=== PATIENT | female | born 1960 | race Caucasian/White ===

== ENCOUNTER 2022-01-14 12:45 | Outpatient (REF) | payer BC, SELFPAY ==
[2022-01-14 14:17] LABS: Vitamin B12 746 pg/mL (200-900)
[2022-01-16 05:07] LABS: Lyme Abs Screen <0.90 index
== END 2022-01-14 12:46 | disposition home or self-care (01) ==
LOC: HO.LAB 12:45
PROVIDERS: Visit Provider Psychiatry & Neurology Neurology
DX: G30.9 Alzheimer's disease, unspecified (principal)
CPT/HCPCS: 36415; 82607; 86617; 86618

== ENCOUNTER → 2023-01-13 11:33 | Outpatient (BNVA) | payer OTHER, SELFPAY | PROVIDERS: PCP Internal Medicine; Visit Provider Psychiatry & Neurology Neurology | DX: F03.90 Unspecified dementia, unspecified severity, without behavioral disturbance, psychotic disturbance, mood disturbance, and anxiety (principal); R06.83 Snoring; G47.10 Hypersomnia, unspecified | CPT/HCPCS: 99202 ==

== ENCOUNTER 2023-01-28 08:16 | Outpatient (REF) | payer OTHER, SELFPAY ==
--- NOTE | 2023-01-28 08:18 | EEG_ITS ---
This is a 16 channel EEG with an EKG lead. The patient is reported awake during the tracing. Background EEG rhythm is low amplitude fast with no obvious asymmetry or paroxysmal tendency. Photic stimulation does not produce any significant abnormality. Hyperventilation is not performed. Cardiac lead does not reveal any significant abnormality. No sharp wave spikes or paroxysmal tendency noted. IMPRESSION: Unremarkable EEG. MD TJ Gregory/EVANS / [id number]
== END 2023-01-28 08:17 | disposition home or self-care (01) ==
LOC: HO.NEURO 08:16
PROVIDERS: PCP Internal Medicine; Visit Provider Psychiatry & Neurology Neurology
DX: R41.0 Disorientation, unspecified (principal)
CPT/HCPCS: 95816

== ENCOUNTER → 2023-02-08 13:52 | Outpatient (REF) | payer OTHER, SELFPAY | LOC: HO.SL 13:52 | PROVIDERS: PCP Internal Medicine; Visit Provider Psychiatry & Neurology Neurology | DX: G47.33 Obstructive sleep apnea (adult) (pediatric) (principal); G47.10 Hypersomnia, unspecified; R06.83 Snoring; R41.0 Disorientation, unspecified | CPT/HCPCS: 95806 ==

== ENCOUNTER 2023-03-17 14:27 | Outpatient (AMB) | payer OTHER, SELFPAY ==
[2023-03-17 14:34] VITALS: BP 140/86; PULSE 80; O2SAT 98; BMI 34.7
--- NOTE | 2023-03-17 14:34 | A.OFFVIS_ITS ---
Intake Vital Signs 03/17/23 14:34 Height 5 ft 1 in Weight 183 lb 8 oz BMI 34.7 BP 140/86 H Blood Pressure Location Rt brachial Position Sitting Pulse 80 Pulse Source Pulse Oximeter Pulse Oximetry (%) 98 Oxygen Delivery Method Room Air Intake Visit Reasons: 2m follow up Alzheimer's dementia - Confirmed Intake Note: Pt presents as a 2m f/u for alzheimers dementia. [employer] Required: No Allergies metformin Allergy (Severe, Verified 03/17/23 14:37) Diarrhea HPI HPI Comments History of Present Illness Details 62 y/o female patient with dementia, hx of stroke presents for follow up of home sleep study. The home sleep study result was significant for moderate degree of sleep apnea. The AHI was 22/hr and oxygen jailene was 82%. CPAP titration study was ordered, but not done yet. EEG result was unremarkable. She was diagnosed with Dementia ? ALzheimers in February of [address] Pelaez. She is on memantine 10 mg BID. Denies side effects. Pt's states she feels her cognitive function a little better than before, but still forgetful. She is independent in all her ADLs. [facility] Medical History Anxiety Carpal tunnel syndrome CKD (chronic kidney disease) Confusion CVA (cerebral vascular accident) Dementia Depression Diabetes Diabetic retinopathy Fatty liver GERD (gastroesophageal reflux disease) HTN (hypertension) Hyperlipidemia Hypersomnia IBS (irritable bowel syndrome) Snoring Surgical History H/O colonoscopy History of carpal tunnel surgery History of laparoscopic appendectomy Hx of cholecystectomy Family History Father Diabetes Myocardial infarct HTN (hypertension) Mother Diabetes HTN (hypertension) Hyperlipidemia Breast CA Maternal Grandmother Cancer Maternal Grandfather Cancer Sister Breast CA Daughter Diabetes Social History (Updated 03/17/23 @ 14:40 by Laurel Hernandez CMA) Alcohol intake: current Alcohol intake frequency: a few times a week Patient Tobacco Use Status: Never used Tobacco Review of Systems Const All systems reviewed & are unremarkable except as noted in HPI and below Neuro Reports confusion Psych Reports confusion Physical Exam Vital Signs: Last Vital Signs Pulse 80 03/17/23 14:34 BP 140/86 H 03/17/23 14:34 Pulse Ox 98 07/06/23 14:34 Oxygen Delivery Method Room Air 03/17/23 14:34 BMI result Body Mass Index 34.7 Const General: cooperative, healthy appearing, comfortable, no acute distress and confusion Nutritional Appearance: average body habitus Orientation/consciousness: confusion Limitations: no limitations Eyes Pupils: Equal, round and reactive pupils present Neuro General: confusion Cranial nerves: Yes Facial sensation intact/muscles of mastication intact, Yes Equal, round and reactive pupils present, Yes Bilaterally intact EOM present, Yes Nystagmus not present, Yes Normal facial strength present, Yes Midline tongue present and Yes Symmetric palate elevation present Cognition (Neuro): abnormal cognition Gait exam (Neuro): Antalgic gait present Motor exam (neuro): 5/5 motor strength present throughout and Normal motor muscle tone present throughout Deep tendon reflexes (DTR's): Right triceps reflex intensity grade: 1+, Left triceps reflex intensity grade: 1+, Rt Biceps (C5, C6): 1+, Left biceps reflex intensity grade: 1+, Right brachioradialis reflex intensity grade: 1+, Left brachioradialis reflex intensity grade: 1+, Right patellar reflex intensity grade: 1+ and Left patellar reflex intensity grade: 1+ Coordination: [id number] test normal Assessment & Plan Assessment & Plan (1) Dementia: Comment: ? early onset Alzheimers Code(s): F03.90 - Unspecified dementia, unspecified severity, without behavioral disturbance, psychotic disturbance, mood disturbance, and anxiety (2) JINNY (obstructive sleep apnea): Comment: Moderate degree of sleep apnea. The AHI was 22/hr and oxygen jailene was 82% Code(s): G47.33 - Obstructive sleep apnea (adult) (pediatric) Plan Discussed regarding sleep apnea and cpap use can improve cognitive function. Advised patient to start APAP [id number] to treat sleep apnea. Continue to take memantine 10mg bid. Avoid driving. Increase physical and cognitive activity. Coding Level of Care Code Est Pt Level 4 (07064) Diagnoses Dementia F03.90 JINNY (obstructive sleep apnea) G47.33
== END 2023-03-17 14:59 | disposition home or self-care (01) ==
LOC: HO.HSMS 14:27
PROVIDERS: PCP Internal Medicine; Visit Provider Nurse Practitioner Family
DX: F03.90 Unspecified dementia, unspecified severity, without behavioral disturbance, psychotic disturbance, mood disturbance, and anxiety (principal); G47.33 Obstructive sleep apnea (adult) (pediatric)
CPT/HCPCS: 99214

== ENCOUNTER → 2023-03-17 14:27 | Outpatient (BNVA) | payer OTHER, SELFPAY | PROVIDERS: PCP Internal Medicine; Visit Provider Nurse Practitioner Family | DX: F03.90 Unspecified dementia, unspecified severity, without behavioral disturbance, psychotic disturbance, mood disturbance, and anxiety (principal); G47.33 Obstructive sleep apnea (adult) (pediatric) | CPT/HCPCS: 99212 ==

== ENCOUNTER 2023-11-22 11:34 | Outpatient (AMB) | payer MEDICARE, MEDICAID, SELFPAY ==
--- NOTE | 2023-11-22 11:41 | MHC.OFFVIS ---
Intake Vital Signs 11/22/23 11:57 Height 5 ft 1 in Weight 162 lb 2 oz BMI 30.6 BP 132/80 Blood Pressure Location Lt brachial Position Sitting Pulse 65 Pulse Source Pulse Oximeter Pulse Oximetry (%) 95 Oxygen Delivery Method Room Air Intake Visit Reasons: 3 mnts f/u - CONF w/address Intake Note: Patient presents for 3 month f/u. Losing up to 5 pounds a week, not much of a appetite and wondering if it is the Dementia. Is Memantine the best medication for her? Allergies metformin Allergy (Severe, Verified 11/22/23 11:50) Diarrhea HPI HPI Comments History of Present Illness Details 63 y/o female patient with dementia, hx of stroke presents for follow up of home sleep study. The home sleep study result was significant for moderate degree of sleep apnea. The AHI was 22/hr and oxygen jailene was 82%. CPAP titration study was ordered, but not done yet. She went for CPAP mask fitting, but she did not like it and declined to use CPAP. EEG result was unremarkable. She sees psychiatrist, and zoloft increased. Pt forgets to take her medication often. Per patient's duaghter, She lost 80 lb over an year. She was diagnosed with Dementia ? ALzheimers in February of [address] Pelaez. She is on memantine 10 mg BID. Denies side effects. Pt's states she feels her cognitive function has not improved. She is independent in all her ADLs. She drives occasionally to her sister's house. [facility] Medical History Anxiety Carpal tunnel syndrome CKD (chronic kidney disease) Confusion CVA (cerebral vascular accident) Dementia Depression Diabetes Diabetic retinopathy Fatty liver GERD (gastroesophageal reflux disease) HTN (hypertension) Hyperlipidemia Hypersomnia IBS (irritable bowel syndrome) Snoring Surgical History History of carpal tunnel surgery H/O colonoscopy Hx of cholecystectomy History of laparoscopic appendectomy Family History Father Diabetes Myocardial infarct HTN (hypertension) Mother Diabetes HTN (hypertension) Hyperlipidemia Breast CA Maternal Grandmother Cancer Maternal Grandfather Cancer Sister Breast CA Daughter Diabetes Social History Alcohol intake: current Alcohol intake frequency: a few times a week Patient Tobacco Use Status: Never used Tobacco Review of Systems Const All systems reviewed & are unremarkable except as noted in HPI and below Neuro Reports confusion Psych Reports confusion Physical Exam Vital Signs: Last Vital Signs Pulse 65 11/22/23 11:57 BP 132/80 11/22/23 11:57 Pulse Ox 95 11/22/23 11:57 Oxygen Delivery Method Room Air 11/22/23 11:57 BMI result Body Mass Index 30.6 Const General: cooperative, healthy appearing, comfortable, no acute distress and confusion Nutritional Appearance: obese Orientation/consciousness: confusion Limitations: no limitations Eyes Pupils: Equal, round and reactive pupils present Neuro General: confusion Cranial nerves: Yes Facial sensation intact/muscles of mastication intact, Yes Equal, round and reactive pupils present, Yes Bilaterally intact EOM present, Yes Nystagmus not present, Yes Normal facial strength present, Yes Midline tongue present and Yes Symmetric palate elevation present Cognition (Neuro): abnormal cognition Gait exam (Neuro): Antalgic gait present Motor exam (neuro): 5/5 motor strength present throughout and Normal motor muscle tone present throughout Deep tendon reflexes (DTR's): Right triceps reflex intensity grade: 1+, Left triceps reflex intensity grade: 1+, Rt Biceps (C5, C6): 1+, Left biceps reflex intensity grade: 1+, Right brachioradialis reflex intensity grade: 1+, Left brachioradialis reflex intensity grade: 1+, Right patellar reflex intensity grade: 1+ and Left patellar reflex intensity grade: 1+ Coordination: [id number] test normal Assessment & Plan Assessment & Plan (1) Dementia: Comment: ? early onset Alzheimers Code(s): F03.90 - Unspecified dementia, unspecified severity, without behavioral disturbance, psychotic disturbance, mood disturbance, and anxiety (2) JINNY (obstructive sleep apnea): Comment: Moderate degree of sleep apnea. The AHI was 22/hr and oxygen jailene was 82% Code(s): G47.33 - Obstructive sleep apnea (adult) (pediatric) Plan Discussed regarding sleep apnea and cpap use can improve cognitive function. Advised patient to start APAP [id number] to treat sleep apnea. Continue to take memantine 10mg bid. Avoid driving. Increase physical and cognitive activity. Coding Level of Care Code Est Pt Level 4 (98832) Diagnoses Dementia F03.90 JINNY (obstructive sleep apnea) G47.33
[2023-11-22 11:57] VITALS: BP 132/80; PULSE 65; O2SAT 95; BMI 30.6
== END 2023-11-22 12:25 | disposition home or self-care (01) ==
LOC: HO.HSMS 11:35
PROVIDERS: PCP Internal Medicine; Visit Provider Nurse Practitioner Family
DX: F03.90 Unspecified dementia, unspecified severity, without behavioral disturbance, psychotic disturbance, mood disturbance, and anxiety (principal); G47.33 Obstructive sleep apnea (adult) (pediatric)
CPT/HCPCS: 99214

== ENCOUNTER → 2023-11-22 11:34 | Outpatient (BNVA) | payer MEDICARE, MEDICAID, SELFPAY | PROVIDERS: PCP Internal Medicine; Visit Provider Nurse Practitioner Family | DX: F03.90 Unspecified dementia, unspecified severity, without behavioral disturbance, psychotic disturbance, mood disturbance, and anxiety (principal); G47.33 Obstructive sleep apnea (adult) (pediatric) | CPT/HCPCS: 99212 ==

== ENCOUNTER 2024-06-19 13:45 | Outpatient (AMB) | payer MEDICARE, MEDICAID, SELFPAY ==
[2024-06-19 13:46] VITALS: BP 116/62; PULSE 84; O2SAT 90; BMI 27.6
--- NOTE | 2024-06-19 13:46 | MHC.OFFVIS ---
Vital Signs 06/19/24 13:46 Height 5 ft 1 in Weight 146 lb BMI 27.6 BP 116/62 Blood Pressure Location Rt brachial Position Sitting Pulse 84 Pulse Source Pulse Oximeter Pulse Oximetry (%) 90 L Oxygen Delivery Method Room Air Intake Visit Reasons: follow up Intake Note: Patient presents for a 7 mon follow up. ( Dementia/ JINNY ) Parking Ramp Attendant Required: No Allergies metformin Allergy (Severe, Verified 06/19/24 13:50) Diarrhea Medication List - Last Reconciled 06/19/24 by Hyun Baig MD amlodipine 5 mg PO DAILY atorvastatin 40 mg PO BEDTIME glyburide 5 mg PO DAILY hydroxyzine HCl 25 mg PO BEDTIME PRN lisinopril 40 mg PO DAILY meclizine 25 mg PO DAILY PRN memantine 10 mg PO BID pantoprazole (Protonix) 20 mg PO DAILY sertraline 100 mg PO DAILY HPI Comments Details: 63 y/o female patient with dementia, hx of stroke presents for follow up of dementia. she is accompanied by her Bridger who helps with her history.she is able to dress, shower, watches TV . she does not cook anymore, cannot drive anymore- stopped by Police as she was confused.she is more confused in the evenings. Her is on dialysis and has BRILLIANDEER LOOPER only during his dialysis. she has daily hallucinations especially in the evenings . sees people in her back yard.she is more anxious and depressed. she has urinary incontinence The home sleep study result was significant for moderate degree of sleep apnea. The AHI was 22/hr and oxygen jailene was 82%. CPAP titration study was ordered, but not done yet. She went for CPAP mask fitting, but she did not like it and declined to use CPAP. EEG result was unremarkable. She sees psychiatrist, and zoloft increased. Pt forgets to take her medication often. She was diagnosed with Dementia ? ALzheimers in February of [address] Pelaez. She is on memantine 10 mg BID. Denies side effects. [facility] Medical History Anxiety CKD (chronic kidney disease) CVA (cerebral vascular accident) Depression IBS (irritable bowel syndrome) HTN (hypertension) Fatty liver GERD (gastroesophageal reflux disease) Carpal tunnel syndrome Hyperlipidemia Diabetic retinopathy Diabetes Dementia Hypersomnia Snoring Confusion Surgical History History of carpal tunnel surgery H/O colonoscopy Hx of cholecystectomy History of laparoscopic appendectomy Family History Father Diabetes Myocardial infarct HTN (hypertension) Mother Diabetes HTN (hypertension) Hyperlipidemia Breast CA Maternal Grandmother Cancer Maternal Grandfather Cancer Sister Breast CA Daughter Diabetes Social History Alcohol intake: current Alcohol intake frequency: a few times a week Patient Tobacco Use Status: Never used Tobacco Review of Systems Neuro Reports confusion Psych Reports confusion Physical Exam Vital Signs: Last Vital Signs Pulse 84 06/19/24 13:46 BP 116/62 06/19/24 13:46 Pulse Ox 90 L 06/19/24 13:46 Oxygen Delivery Method Room Air 06/19/24 13:46 BMI result Body Mass Index 27.6 Const General: cooperative, healthy appearing, comfortable, no acute distress and confusion Nutritional Appearance: obese Orientation/consciousness: confusion Limitations: no limitations Eyes Pupils: Equal, round and reactive pupils present Neuro General: confusion Cranial nerves: Yes Facial sensation intact/muscles of mastication intact, Yes Equal, round and reactive pupils present, Yes Bilaterally intact EOM present, Yes Nystagmus not present, Yes Normal facial strength present, Yes Midline tongue present and Yes Symmetric palate elevation present Cognition (Neuro): abnormal cognition Gait exam (Neuro): Antalgic gait present Motor exam (neuro): 5/5 motor strength present throughout and Normal motor muscle tone present throughout Coordination: [id number] test normal Orientation Where are we (state) (county) (town or city) (hospital) (floor)?: state, hospital/clinic and floor Registration Name of 3 unrelated objects clearly and slowly, then ask patient to repeat all 3 of them. (1st repeat determines score. Make sure they can repeat all three): object 1, object 2 and object 3 Attention & Calculation (CHOOSE ONE) Spell WORLD backwards (DLROW): 1 letter Language Show patient a wristwatch & ask what it is. Repeat for pencil.: watch and pencil Ask the patient to repeat the phrase 'No ifs, ands, or buts' after you.: correct Ask the patient to 'take a piece of paper with their right hand' 'fold paper in half' 'place paper on floor': take paper in right hand, fold paper in half and place paper on floor Print the sentence 'CLOSE YOUR EYES' on a piece. If patient actually closes eyes then score.: followed written direction Give patient a blank piece of paper & ask to write a sentence. Score if it contains a noun & verb.: sentence contains subject and verb Score Score: 15 Assessment & Plan Assessment & Plan (1) Dementia: Comment: ? early onset Alzheimers Code(s): F03.90 - Unspecified dementia, unspecified severity, without behavioral disturbance, psychotic disturbance, mood disturbance, and anxiety Category: Medical Qualifiers: Dementia type: Alzheimer's Alzheimer's disease onset: early onset Dementia severity: severe Dementia behavioral or psychological symptom: with psychotic disturbance Qualified Code(s): G30.0 - Alzheimer's disease with early onset; F02.C2 - Dementia in other diseases classified elsewhere, severe, with psychotic disturbance Plan Patient needs additional services as her spouse who is her advertising solicitor is on Dialysis 3 times a week. He gets support only during his dialysis but needs more hours for daily activities like grocery shopping, cleaning, meal prep, hygiene etc. 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
== END 2024-06-19 14:31 | disposition home or self-care (01) ==
PROVIDERS: PCP Internal Medicine; Visit Provider Psychiatry & Neurology Neurology
DX: G30.0 Alzheimer's disease with early onset (principal); F02.C2 Dementia in other diseases classified elsewhere, severe, with psychotic disturbance
CPT/HCPCS: 99214; G2211

== ENCOUNTER → 2024-06-19 13:45 | Outpatient (BNVA) | payer MEDICARE, MEDICAID, SELFPAY | PROVIDERS: PCP Internal Medicine; Visit Provider Psychiatry & Neurology Neurology | DX: G30.0 Alzheimer's disease with early onset (principal); F02.C2 Dementia in other diseases classified elsewhere, severe, with psychotic disturbance | CPT/HCPCS: 99212 ==

== ENCOUNTER 2025-01-17 13:57 | Outpatient (AMB) | payer MEDICARE, MEDICAID, SELFPAY ==
--- NOTE | 2025-01-17 14:23 | A.OFFVIS_ITS ---
Vital Signs 01/17/25 14:24 Height 5 ft 1 in Weight 157 lb BMI 29.7 BP 110/66 Blood Pressure Location Rt brachial Intake Visit Reasons: follow up-LVM Intake Note: Patient presents for follow up alzheimer's Allergies metformin Allergy (Severe, Verified 01/17/25 14:25) Diarrhea HPI Comments Details: 64 y/o female patient with dementia, hx of stroke presents for follow up of dementia. she is more confused .she is being investigated for kidney and thyroid malignancy. 2 weeks ago she went to the hospital - for hypoglycemia - 28 and she had a seizure. Her insulin dose was decreased . she has a FIELD SERVICES ANALYST 4 hrs a day for 4 days a week. she is accompanied by her daughter who helps with her history.she needs supervision to dress, shower, watches TV . she does not cook anymore, cannot drive anymore- stopped by Police as she was confused.she is more confused in the evenings. she has daily hallucinations especially in the evenings . sees people in her back yard.she is more anxious and depressed. she has urinary incontinence The home sleep study result was significant for moderate degree of sleep apnea. The AHI was 22/hr and oxygen jailene was 82%. She went for CPAP mask fitting, but she did not like it and declined to use CPAP. EEG result was unremarkable. She sees psychiatrist, and zoloft increased. Pt forgets to take her medication often. She was diagnosed with Dementia ? ALzheimers in February of [address] Pelaez. She is on memantine 10 mg BID. Denies side effects. [facility] Medical History Anxiety CKD (chronic kidney disease) CVA (cerebral vascular accident) Depression IBS (irritable bowel syndrome) HTN (hypertension) Fatty liver GERD (gastroesophageal reflux disease) Carpal tunnel syndrome Hyperlipidemia Diabetic retinopathy Diabetes Dementia Hypersomnia Snoring Confusion Surgical History History of carpal tunnel surgery H/O colonoscopy Hx of cholecystectomy History of laparoscopic appendectomy Family History Father Diabetes Myocardial infarct HTN (hypertension) Mother Diabetes HTN (hypertension) Hyperlipidemia Breast CA Maternal Grandmother Cancer Maternal Grandfather Cancer Sister Breast CA Daughter Diabetes Social History Alcohol intake: current Alcohol intake frequency: a few times a week Patient Tobacco Use Status: Never used Tobacco Review of Systems Neuro Reports confusion Psych Reports confusion Physical Exam Vital Signs: Last Vital Signs BP 110/66 01/17/25 14:24 BMI result Body Mass Index 29.7 Const General: cooperative, healthy appearing, comfortable, no acute distress and confusion Nutritional Appearance: obese Orientation/consciousness: confusion Limitations: no limitations Eyes Pupils: Equal, round and reactive pupils present Neuro General: confusion Cranial nerves: Yes Facial sensation intact/muscles of mastication intact, Yes Equal, round and reactive pupils present, Yes Bilaterally intact EOM present, Yes Nystagmus not present, Yes Normal facial strength present, Yes Midline tongue present and Yes Symmetric palate elevation present Cognition (Neuro): abnormal cognition Gait exam (Neuro): Antalgic gait present Motor exam (neuro): 5/5 motor strength present throughout and Normal motor mus alana tone present throughout Coordination: [id number] test normal Assessment & Plan Assessment & Plan (1) Dementia: Comment: ? early onset Alzheimers ? mixed dementia Code(s): F03.90 - Unspecified dementia, unspecified severity, without behavioral disturbance, psychotic disturbance, mood disturbance, and anxiety Category: Medical Qualifiers: Dementia type: Alzheimer's Alzheimer's disease onset: early onset Dementia severity: severe Dementia behavioral or psychological symptom: with psychotic disturbance Qualified Code(s): G30.0 - Alzheimer's disease with early onset; F02.C2 - Dementia in other diseases classified elsewhere, severe, with psychotic disturbance Plan Supportive care F/u with PCP Continue memantine 10mg bid Discussed about [facility] care services Coding Level of Care Code Est Pt Level 4 (06396) Diagnoses 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
[2025-01-17 14:24] VITALS: BP 110/66; BMI 29.7
--- OUTSIDE RECORDS SUMMARY | 2025-01-17 14:54 | XMS_ITS | Clinical Summary ---
Author Organization [facility] Address [address] [place] [address] Phone Care Team Providers Care Piped Buttonhole Machine Operator Name Role Phone Audrey Posey MD Primary Care Pr ovider Allergies No known active allergies Medications megestrol (MEGACE) 20 MG tablet Take 20 mg by mouth 1 (one) time each day Active atorvastatin (LIPITOR) 40 MG tablet Take 40 mg by mouth 1 (one) time each day Active amLODIPine (NORVASC) 5 MG tablet Take 5 mg by mouth 1 (one) time each day Active pantoprazole (PROTONIX) 20 MG EC tablet Take 20 mg by mouth 1 (one) time each day before breakfast Do not crush, chew, or split. Active memantine (NAMENDA) 10 MG tablet Take 10 mg by mouth in the morning and 10 mg in the evening. Active glucose blood test strip 1 each by Other route if needed Use as instructed Active insulin glargine (LANTUS) 100 UNIT/ML injection Inject under the skin every night Active sertraline (ZOLOFT) 100 MG tablet Take 100 mg by mouth 1 (one) time each day Active gabapentin (NEURONTIN) 400 MG capsule Take 400 mg by mouth 1 (one) time each day Active hydrOXYzine (ATARAX) 25 MG tablet Take 25 mg by mouth every 6 (six) hours if needed for itching Active Brexpiprazole (Rexulti) 2 MG tablet Take by mouth 1 (one) time each day pm Active ciprofloxacin (Cipro) 250 MG tablet Take 1 tablet (250 mg total) by mouth in the morning and 1 tablet (250 mg total) in the evening. Do all this for 5 days. 10 tablet 5 12/26/19 25 Active Problems Problem Noted Date Diagnosed Date Stage 3a chronic kidney disease 10/09/2024 Benign hypertension with chronic kidney disease 10/09/2024 Type 2 diabetes mellitus wit h diabetic chronic kidney disease 10/09/2024 Hyperlipidemia Encounters Date Type Department Care Team Description 12/31/2024 Office Communication [facility] [address] [address] Cole Schwartz MD 12/20/2024 Refill [facility] [address] [address] Cole Schwartz MD Renal mass (Primary Dx) 12/19/2024 Office Communication [facility] [address] [address] Joyce Venegas 12/14/2024 Orders Only [facility] [address] [address] Cole Schwartz MD 12/14/2024 Telephone [facility] [address] [address] 12/11/2024 Orders Only [facility] [address] [address] Cole Schwartz MD Stage 3a chronic kidney disease (HCC); Benign hypertension with chronic kidney disease; Type 2 diabetes mellitus with diabetic chronic kidney disease (HCC) 11/27/2024 Office Communication [facility] [address] [address] Johan Winters 11/27/2024 Orders Only [facility] [address] [phone] Cole Schwartz MD Renal mass 11/26/2024 Orders Only [facility] [address] [address] Cole Schwartz MD Renal mass (Primary Dx) from Last 3 Months Family History Medical History Relation Comments Diabetes Father Heart attack Father Hypertension Father Uterine cancer Maternal Grandmother Breast cancer Mother Diabetes Mother Hyperlipidemia Mother Hypertension Mother Breast cancer Sister Relation Status Comments Father Maternal Grandmother Mother Sister Social History Tobacco Use Types Packs/Day Years Used Date Smoking Tobacco: Never Smokeless Tobacco: Never Tobacco Cessation:Counseling Given: Not Answered Alcohol Use Standard Drinks/Week Comments Yes 0 (1 standard drink = 0.6 oz pur e alcohol) occasional Comments Unknown Sex and Gender Information Value Date Recorded Sex Assigned at Not on file Legal Sex Female 9:54 AM EDT Gender Identity Not on file Sexual Orientation Not on file Last Filed Vital Signs Vital Sign Reading Time Taken Comments Blood Pressure 114/76 10/09/2024 10:17 AM EST Pulse 80 10/09/2024 10:17 AM EST Temperature - - Respiratory Rate - - Oxygen Saturation - - Inhaled Oxygen Concentration - - Weight 68.2 kg (150 lb 6.4 oz) 10/09/2024 10:17 AM EST Height - - Body Mass Index - - Plan of Treatment Upcoming Encounters Date Type Department Care Team (Late st Contact Info) Description 01/31/2025 3:00 PM EDT Office Visit [facility] [address] [place] [phone] Cole Schwartz MD [address] [phone] Health Maintenance Due Date Last Done Comments Breast Cancer Screening 1960 Colorectal Cancer Screening: Annual FOBT 2007 Colorectal Cancer Screening: Colonoscopy 2007 Colorectal Cancer Screening: Sigmoidoscopy 2007 Pneumococcal Vaccine: 50+ Ye ars (2 of 2 - PCV) 11/16/2014 11/16/2013 Hepatitis B Vaccine (1 of 3 - Risk 3-dose series) 2018 Diabetes: Ophthalmology Exam 07/13/2024 Diabetes: Pedal Pulse Checked 07/13/2024 Diabetes: Sensory Foot Exam 07/13/2024 Diabetes: Visual Foot Exam 07/13/2024 Diabetes: Hemoglobin A1C 09/19/2024 06/19/2024 Influenza Vaccine (Season Ended) 2025 05/25/2022, 11/13/2021, 08/30/2012, Additional history exists Pneumococcal Vaccine: Peds ( 0 to 5 Years) and At-Risk Patients (6 to 49 Years) Discontinued 11/16/2013 Procedures Procedure Name Priority Date/Time Associated Diagnosis Comments PROTEIN / CREATININE RATIO, URINE Routine 12/14/2024 6:00 AM EDT URINALYSIS WITH MICROSCOPIC Routine 12/14/2024 6:00 AM EDT MICROSCOPIC EXAMINATION - DO NOT USE Routine 12/14/2024 6:00 AM EDT PTH, INTACT Routine 12/11/2024 2:34 PM EDT Stage 3a chronic kidney disease (HCC) 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) RENAL FUNCTION PANEL Routine 12/11/2024 2:34 PM EDT Stage 3a chronic kidney disease (HCC) 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) VITAMIN D 25 HYDROXY Routine 12/11/2024 2:34 PM EDT Stage 3a chronic kidney disease (HCC) 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) PROTEIN ELECTROPHORESIS, SERUM Routine 12/11/2024 2:34 PM EDT Stage 3a chronic kidney disease (HCC) 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) from Last 3 Months Results * (ABNORMAL) Microscopic Examination (12/14/2024 6:00 AM EDT) WBC, Urine >30(A) 0 - 5 /hpf [facility] RBC, Urine None seen 0 - 2 /hpf [facility] Squamous Epithelial, Urine None seen 0 - 10 /hpf [facility] Casts None seen None seen /lpf [facility] Bacteria, Urine Many(A) None seen/Few [facility] 12/14/2024 6:00 AM EDT 12/14/2024 Cole Schwartz MD LAB MICROBIOLOGY - [facility] Final Result Performing Organization Address City/[facility]/ZIP Co de Phone Number [facility] [address] [place] [address] * (ABNORMAL) Protein, Total, Random Urine w/Creatinine (Protein/Creat Ratio) (12/14/2024 6:00 AM EDT) Creatinine, Ur 91.3 Not Estab. mg/dL [facility] Protein, Ur 39.2 Not Estab. mg/dL [facility] Urine Protein/Creati nine Ratio 429(H) 0 - 200 mg/g creat [facility] 12/14/2024 6:00 AM EDT 12/14/2024 us Cole Schwartz MD LAB URINE ORDERABLES Final Resu lt [facility] [address] [place] [address] * (ABNORMAL) Urinalysis with microscopic (12/14/2024 6:00 AM EDT) Specific [place], Urine 1.014 1.005 - 1.030 [facility] [phone] pH Urine 5.5 5.0 - 7.5 [facility] [phone] Color, Urine Yellow Yellow [facility] Appearance Urine Cloudy(A) Clear [facility] WBC Esterase Urine 2+(A) Negative [facility] Protein, Ur 1+(A) Negative/Tra ce [facility] Glucose, Ur Negative Negative [facility] Ketones, Urine Negative Negative [facility] [phone] Blood Urine Negative Negative [facility] Bilirubin Urine Negative Negative [facility] Urobilinogen Urine 0.2 0.2 - 1.0 mg/dL [facility] Nitrite, Urine Negative Negative [facility] Microscopic Examination See below: [facility] Comment:Microscopic was breonna cated and was performed. 12/14/2024 6:00 AM EDT 12/14/2024 us Cole Schwartz MD LAB URINE ORDERABLES Final Resu lt [facility]CO [facility] [address] [place] [address] * Vitamin D 25 hydroxy (12/11/2024 2:34 PM EDT) Vitamin D, 25-OH, Total 45.0 30.0 - 100.0 ng/mL [facility] Comment: Vitamin D deficiency has been defined by the [place] of [employer] and an Endocrine Society practice guideline as a level of serum 25-OH vitamin D less than 20 ng/mL (1,2). The Endocrine Society went on to further define vitamin D insufficiency as a level between 21 and 29 ng/mL (2). 1. IOM ([place] of Medicine). 2010. Dietary reference ?? intakes for calcium and D. [place]: The ?? National Academies Press. 2. Lidia LIVINGSTON, Jose Angel CAMPO, Shabana CAREY, et al. ?? Evaluation, treatment, and prevention of vitamin D ?? deficiency: an Endocrine Society clinical practice ?? guideline. JCEM. 2010; 96(7):1911-30. Blood (Blood, Venous) 12/11/2024 2:34 PM EDT 12/11/2024 us Cole Schwartz MD LAB BLOOD ORDERABLES Final Resu lt [facility] [address] [place] [address] * (ABNORMAL) Protein electrophoresis, serum (12/11/2024 2:34 PM EDT) Total Protein 7.3 6.0 - 8.5 g/dL [facility] Albumin 3.3 2.9 - 4.4 g/dL [facility] Hfmcc-2-Nfwuhbka 0.3 0.0 - 0.4 g/dL [facility] Padtb-2-Wcdqfwud 1.0 0.4 - 1.0 g/dL [facility] Beta Globulin 1.1 0.7 - 1.3 g/dL [facility] Gamma Globulin in Serum 1.7 0.4 - 1.8 g/dL [facility] M-Laci Serum Comment Not Observed g/dL [facility] Comment: Faint band in gamma region suspicious for monoclonal immunoglobulin. This band may represent a benign spike as seen in older people or could be a paraprotein as seen in Multiple Myeloma, Waldenstrom's Macroglobulinemia or Lymphoma. Depending on clinical circumstances, further diagnostic studies may include serum immunofixation or serum free light chain quantitation. Globulin, Total 4.0(H) 2.2 - 3.9 g/dL [facility] A/G Ratio 0.8 0.7 - 1.7 [facility] [phone] Please note Comment [facility] [phone] Comment: Protein electrophoresis scan will follow via computer, mail, or real estate administrator delivery. PDF . [facility] [phone] Blood (Blood, Venous) 12/11/2024 2:34 PM EDT 12/11/2024 us Cole Schwartz MD LAB BLOOD ORDERABLES Final Resu lt Performing Organization Address City/[facility]/ZIP Co de Phone Number [facility] [address] [place] [address] * (ABNORMAL) PTH, intact (12/11/2024 2:34 PM EDT) PTH 146(H) 15 - 65 pg/mL [facility] Blood (Blood, Venous) 12/11/2024 2:34 PM EDT 12/11/2024 us Cole Schwartz MD LAB BLOOD ORDERABLES Final Resu lt Performing Organization Address City/[facility]/ZIP Co de Phone Number [facility] [address] [place] [address] * (ABNORMAL) Renal function panel (12/11/2024 2:34 PM EDT) Glucose 252(H) 70 - 99 mg/dL [facility] BUN 22 8 - 27 mg/dL [facility] Creatinine 1.23(H) 0.57 - 1.00 mg/dL [facility] eGFR CKD-EPI CR 2020 48(L) >59 mL/min/1.7 3 [facility] BUN/Creatinine Ratio 18 12 - 28 [facility] Sodium 141 134 - 144 mmol/L [facility] Potassium 3.7 3.5 - 5.2 mmol/L [facility] Chloride 104 96 - 106 mmol/L [facility] Bicarbonate (CO2) 20 20 - 29 mmol/L [facility] Calcium 9.0 8.7 - 10.3 mg/dL [facility] Albumin 4.0 3.9 - 4.9 g/dL [facility] Phosphorus 3.6 3.0 - 4.3 mg/dL [facility] Blood (Blood, Venous) 12/11/2024 2:34 PM EDT 12/11/2024 Cole Schwartz MD LAB BLOOD ORDERABLES Final Resu lt [facility] [address] [place] [address] from Last 3 Months Insurance Medicare Medicare Medicaid [place] Care Teams Piped Buttonhole Machine Operator Relationship Specialty Start Date End Date Audrey Posey MD [address] [place] [address] PCP - General Internal Medicine 12/15/23
--- OUTSIDE RECORDS SUMMARY | 2025-01-17 14:54 | XMS_ITS | Encounter Summary ---
Author Organization [facility] Address [address] [place] [address] Care Team Providers Care Food Scientist Name Role Phone Audrey Posey MD Primary Care Prov ider Reason for Visit * Reason Onset Date Comments Faxed Order 01/16/2025 Encounter Details Date Type Department Care Team ([facility] Contact Info) Description 01/16/2025 Telephone Adult Medicine - [place] [address] [place] [phone] Audrey Posey MD [address], [place] [phone] Faxed Order Social History Tobacco Use Types Packs/Day Years Used Date Smoking Tobacco: Never Smokeless Tobacco: Never Alcohol Use Standard Drinks/Week Comments Yes 0 (1 standard drink = 0.6 oz pur e alcohol) Comments No Sex and Gender Information Value Date Recorded Sex Assigned at Female 01/15/2025 11:01 AM EDT Legal Sex Female 4:06 PM EST Gender Identity Female 01/15/2025 11:01 AM EDT Sexual Orientation Straight 01/15/2025 11 :01 AM EDT documented as of this encounter Progress Notes * Antonina Gastelum - 01/16/2025 12:06 PM EDT PLEASE CLOSE MESSAGE WHEN ORDER HAS BEEN FAXED Faxed order [id number] received from [facility], requesting signature from provider. Please sign and fax back to [phone]. Order in orange folder documented in this encounter Plan of Treatment Upcoming Encounters Date Type Department Care Team (Late st Contact Info) Description 01/22/2025 8:00 AM EDT Appointment [facility] Interventional Radiology [address] [place] [phone] 01/23/2025 2:00 PM EDT Office Visit [facility] Hematology Oncology [address] [place] [phone] Charis Anderson MD [address] [place] [address] 02/12/2025 1:00 PM EDT Office Visit Urogynecology - [address] [phone] Hailey John MD [address] [place] [address] [address] [place] [address] 02/26/2025 11:00 AM EDT Office Visit Adult Medicine - [place] [address] [place] [phone] Audrey Posey MD [address], [place] 05/02/2025 1:50 PM EDT Appointment Radiology Department - [address] [phone] documented as of this encounter Goals Goal Patient Goal Type Associated Problems Recent Progress Patient-Stated? Author Keep patient safe at home Chelsea Evangelista, RN Note: [facility] Program referral Educate family as needed Assist family to find additional care resources documented as of this encounter Visit Diagnoses Not on filedocumented in this encounter Care Teams Food Scientist Relationship Specialty Start Date End Date Audrey Posey MD [address], [place] PCP - General Internal Medicine 10/31/15 documented as of this encounter
--- OUTSIDE RECORDS SUMMARY | 2025-01-17 14:54 | XMS_ITS | Continuity of Care Document ---
Author Organization [facility] [address] [facility] [address] [place] [address] Phone [phone] Care Team Providers Care Director Prison Name Role Phone Audrey Dailey MD Care Team Informa tion Checkroom Chief [phone] Audrey Nettles M.D Care Team Informa tion Checkroom Chief [phone] Problems Active Problems Provider Date Type 2 diabetes mellitus Sreekanth Interiano M.D. Onset: 12/25/2024 Dementia Sreekanth Interiano M.D. Onset: 0 12/25/2024 Social History Type Date Description Comments Sex Unknown Medications Active Medications SIG Qnty Indications Order ing Provider Date Vitamin D (Ergocalciferol)1.25 mg (62724 Ut) Capsules Take 1 Capsule By Mouth Once A Week Unknown Memantine OFA68pd Tablets Take 1 Tablet By Mouth Twice Daily Chris Almanzar PA Purlgeq2od Tablets Take 1 Tablet By Kathia Once Daily AT Bedtime Unknown Novolog Fiazppt278Jsci/ML Solution Pen-Inject Inject 10 Units Subcutaneously Subcutaneously Three Times Daily With Meals Unknown 0 Tsinotwrn41lf Tablets ER 24HR Take 1 Tablet By Mouth Once Daily Unknown Megestrol Esipoeo99pb Tablets Take 1 Tablet By Mouth Once Daily Audrey Nettles M.D Lantus Sbldqzjj859Icfw/ML Solution Pen-Inject Inject 65 Units Subcutaneously AT Bedtime Unknown BD Pen Needle/Short/Ultra-F ine/31G X 8mm31G X 8 mm Misc Use 1 Pen Subcutaneously 4 Times Daily.Use To Inject Insulin. Unknown Insulin Lispro (1 Unit Dial)100Unit/ML Solution Pen-Inject Inject 10 Units Subcutaneously Three Times Daily Before Meal(S) Unknown Sertraline FMI662cb Tablets Take 2 Tablets By Mouth AT Bedtime Unknown Atorvastatin Gqfatlz84cu Tablets Take 1 Tablet By Mouth Once Daily Unknown Pantoprazole Bhdrkh89mw Tablets DR Take 1 Tablet By Mouth Once Daily Chris Almanzar PA Pnxfmtwpau376cg Capsules Take 1 Capsule By Mouth AT Bedtime Unknown Vital Signs Date Vital Result Comment 12/25/2024 1:52pm BP Systolic 120 mmHg BP Diastolic 82 mmHg Heart Rate 72 /min Height 61 inches 5'1 Weight 161.25 lb BMI (Body Mass Index) 30.5 kg/m2 Results Test Acquired Date Facility Test Result H/L Range N ote Vitamin B12 12/25/2024 [facility] Vitamin B12 <pending> Glucose Fingerstick 12/25/2024 Inhouse Glucose Fingerstick 172 Hemoglobin A1c 12/25/2024 Inhouse Hemoglobin A1c 7.0% Procedures Date Code Description Status 12/25/2024 59160 Glucose Monitoring Interpeta tion And Report Completed Medical Devices Description No Information Available Encounters Type Date Location Provider Dx Diagnosis Office Visit 12/25/2024 1:45p Main Office Sreekanth Interiano M.D. E11.9 Type 2 diabetes mellitus without complications Assessments Date Code Description Provider 12/25/2024 E11.9 Type 2 diabetes mellitus without complications Sreekanth Interiano M.D. Plan of Treatment Future Appointment(s):* 04/30/2025 1:45 pm - Sreekanth Interiano M.D. at Main Office 12/25/2024 - Sreekanth Interiano M.D.* E11.9 Type 2 diabetes mellitus without complications* New Labs:* Vitamin B12, Ordered: 12/25/24 * Comp. Metabolic Panel (14), Ordered: 12/25/24 * Lipid Panel, Ordered: 12/25/24 * Urinalysis, Complete, Ordered: 12/25/24 * CBC With Differential/Platelet, Ordered: 12/25/24 * Thyroid Stimulating Hormone (TSH), Ordered: 12/25/24 * Thyroxine (T4) Free Direct, Ordered: 12/25/24 * Albumin/Creatinine Ratio, Random Urine, Ordered: 12/25/24 * Thyroid Peroxidase (Tpo) AB, Ordered: 12/25/24 Functional Status Description No Information Available Mental Status Description No Information Available Referrals Description No Information Available
--- OUTSIDE RECORDS SUMMARY | 2025-01-17 14:54 | XMS_ITS ---
Author Organization [facility] Address [address] [place] [address] Care Team Providers Care Grocery Supervisor Name Role Phone Audrey Posey MD Primary Care Prov ider High Risk Care Management Status:Ongoing (Active) Start date:12/31/2024 Enrollment date:12/31/2024 Enrollment reason:Identified as high-risk Case Team Name Relationship Phone Chelsea Snell aligner(Responsible S taff) Continued Care and Services Coordination
--- OUTSIDE RECORDS SUMMARY | 2025-01-17 14:54 | XMS_ITS | Encounter Summary ---
Author Organization [facility] Address [address] [place] [address] Care Team Providers Care Steam Tank Operator Name Role Phone Audrey Posey MD Primary Care Prov ider Reason for Visit * Reason Onset Date Comments Faxed Order [id number] 01/17/2025 Encounter Details Date Type Department Care Team ([facility] st Contact Info) Description 01/17/2025 Telephone Adult Medicine - [place] [address] [place] [phone] Audrey Posey MD [address] [place], [place] [phone] Faxed Order [id number] Social History Tobacco Use Types Packs/Day Years [...] encounter Progress Notes * Antonina Gastelum - 01/17/2025 9:42 AM EDT PLEASE CLOSE MESSAGE WHEN ORDER HAS BEEN FAXED Faxed order [id number] received from [facility], requesting signature from provider. Please sign and fax back to [phone]. Order in orange folder documented in this encounter Plan of Treatment Upcoming Encounters Date Type Department Care Team (Late st Contact Info) Description 01/22/2025 8:00 AM EDT Appointment [facility] Interventional Radiology [address] [place] [phone] 01/23/2025 2:00 PM EDT Office Visit [facility] Hematology Oncology [address] [place] [phone] Charis Anderson MD [address] [place] [address] 02/12/2025 1:00 PM EDT Office Visit Urogynecology - [address] [phone] Hailey John MD [address] [place] [address] [address] [place] [address] 02/26/2025 11:00 AM EDT Office Visit Adult Medicine - [place] [address] [place] [address] Audrey Posey MD [address] [place], [place] 05/02/2025 1:50 PM EDT Appointment Radiology Department - [address] [phone] documented as of this encounter Goals Goal Patient Goal Type Associated Problems Recent Progress Patient-Stated? Author Keep patient safe at home Chelsea Evangelista, RN Note: Pace Program referral Educate family as needed Assist family to find additional care resources documented as of this encounter Visit Diagnoses Not on filedocumented in this encounter Care Teams Steam Tank Operator Relationship Specialty Start Date End Date Audrey Posey MD [address] [place], [place] PCP - General Internal Medicine 10/31/15 documented as of this encounter
--- OUTSIDE RECORDS SUMMARY | 2025-01-17 14:54 | XMS_ITS | Encounter Summary ---
Author Organization [facility] Address [address] [place] [address] Care Team Providers Care Career Development Coordinator Name Role Phone Audrey Posey MD Primary Care Prov ider Encounter Details Date Type Department Care Team (Latest Contact Info) Description 01/17/2025 Billing Patient Not Present Adult Medicine - [place] [address] [place] [phone] Audrey Posye MD [address] [place] [address] Type 2 diabetes mellitus with hypoglycemia without coma, unspecified whether jail insulin use (CMS/HCC V24, CMS/HCC V28) (Primary Dx); Convulsions, unspecified convulsion type (CMS/HCC V24, CMS/HCC V28); Dementia without behavioral disturbance, psychotic disturbance, mood disturbance, or anxiety, unspecified dementia severity, unspecified dementia type (CMS/HCC V24, CMS/HCC V28); Hypokalemia; Essential (primary) hypertension; Altered mental status, unspecified altered mental status type Social History Tobacco Use Types Packs/Day Years [...] as of this encounter Progress Notes * Alfie Berumen MA - 01/17/2025 9:39 AM EDT Start of Care Date: 01/03/25 Date of certification period: 01/03/25- Date of service = signature date 01/17/25 Hospice patient: no Home Care Agency: [facility] Recertification Code [id number] Initial Code G0180 documented in this encounter Plan of Treatment Upcoming Encounters Date Type Department Care Team (Late st Contact Info) Description 01/22/2025 8:00 AM EDT Appointment [facility] Interventional Radiology [address] [place] [phone] 01/23/2025 2:00 PM EDT Office Visit [facility] Hematology Oncology [address] [place] [phone] Charis Anderson MD [address] [place] [address] 02/12/2025 1:00 PM EDT Office Visit Urogynecology - [address] [phone] Hailey John MD [address] [place] [address] [address] [place] [address] 02/26/2025 11:00 AM EDT Office Visit Adult Medicine - [address] [phone] Audrey Posey MD [address] [place] [address] 05/02/2025 1:50 PM EDT Appointment Radiology Department - [address] [phone] documented as of this encounter Goals Goal Patient Goal Type Associated Problems Recent Progress Patient-Stated? Author Keep patient safe at home Chelsea Evangelista, RN Note: Pace Program referral Educate family as needed Assist family to find additional care resources documented as of this encounter Visit Diagnoses Diagnosis Type 2 diabetes mellitus with hypoglycemia without coma, unspecified whether jail insulin use ([facility] V24, [facility] V28)- Primary Convulsions, unspecified convulsion type ([facility] V24, [facility] V28) Dementia without behavioral disturbance, psychotic disturbance, mood disturbance, or anxiety, unspecified dementia severity, unspecified dementia type (CMS/[facility] V24, [facility] V28) Hypokalemia Hypopotassemia Essential (primary) hypertension Unspecified essential hypertension Altered mental status, unspecified altered mental status type Encounter for screening mammogram for breast cancer documented in this encounter Care Teams Career Development Coordinator Relationship Specialty Start Date End Date Audrey Posey MD [address] [place] [address] PCP - General Internal Medicine 10/31/15 documented as of this encounter
--- OUTSIDE RECORDS SUMMARY | 2025-01-17 14:54 | XMS_ITS | Encounter Summary ---
Author Organization [facility] Address [address] [place] [address] Care Team Providers Care High Lift Driver Name Role Phone Audrey Posey MD Primary Care Prov ider Reason for Visit * Reason Onset Date Comments Forms/questionnaires 01/14/2025 [facility] 01/04/20-03/03/2025 Encounter Details Date Type Department Care Team ([facility] Contact Info) Description 01/14/2025 Telephone Adult Medicine - [place] [address] [place] [address] Audrey Posey MD [address] [place] [address] Forms/questionnaires ([facility] 01/03/2025-03/03/2025) Social History Tobacco Use Types Packs/Day Years [...] of this encounter Progress Notes * Alfie Bermuen MA - 01/17/2025 9:38 AM EDT Order encounter created. * Alfie Berumen MA - 01/16/2025 4:33 PM EDT Placed in pcp's in basket. * Antonina Gastelum - 01/14/2025 10:58 AM EDT HOME HEALTH CERTIFICATION AND PLAN OF CARE DATE RECEIVED:01/13/2025 AGENCY:[facility] CERT DATES:01/03/2025-03/03/2025 FAX NUMBER:[phone] LOCATION OF HHC:lead front desk agent forms bin documented in this encounter Plan of Treatment Upcoming Encounters Date Type Department Care Team (Late st Contact Info) Description 01/22/2025 8:00 AM EDT Appointment [facility] Interventional Radiology [address] [place] [address] 01/23/2025 2:00 PM EDT Office Visit [facility] Hematology Oncology [address] [place] [address] Charis Anderson MD [address] [place] [address] 02/12/2025 1:00 PM EDT Office Visit Urogynecology [address] [phone] Hailey John MD [address] [facility] [address] [place] [address] 02/26/2025 11:00 AM EDT Office Visit Adult Medicine - [place] [address] [place] [address] Audrey Posey MD [address] [place] [address] 05/02/2025 1:50 PM EDT Appointment Radiology Department [address] [phone] documented as of this encounter Goals Goal Patient Goal Type Associated Problems Recent Progress Patient-Stated? Author Keep patient safe at home Chelsea Evangelista, RN Note: Pace Program referral Educate family as needed Assist family to find additional care resources documented as of this encounter Visit Diagnoses Not on filedocumented in this encounter Care Teams High Lift Driver Relationship Specialty Start Date End Date Audrey Posey MD [address] [place] [address] PCP - General Internal Medicine 10/31/15 documented as of this encounter
--- OUTSIDE RECORDS SUMMARY | 2025-01-17 14:54 | XMS_ITS | Encounter Summary ---
Author Organization [facility] Address [address] [place] [address] Phone Care Team Providers Care Coining Press Operator Name Role Phone Audrey Posey MD Primary Care Pr ovider Reason for Visit * Reason Onset Date Comments REQUEST CT 12/14/2024 Encounter Details Date Type Department Care Team (Late st Contact Info) Description 12/14/2024 Telephone [facility]. [address] [place] [address] Joyce Venegas [address] [place] [address] Social History Tobacco Use Types Packs/Day Years Used Date Smoking Tobacco: Never Smokeless Tobacco: Never Alcohol Use Standard Drinks/Week Comments Yes 0 (1 standard drink = 0.6 oz pur e alcohol) occasional Comments Unknown Sex and Gender Information Value Date Recorded Sex Assigned at Not on file Legal Sex Female 9:54 AM EDT Gender Identity Not on file Sexual Orientation Not on file documented as of this encounter Miscellaneous Notes * Telephone Encounter - Joyce Venegas - 12/14/2024 11:18 AM EDT Patient daughter Linda calls today requesting if it's possible for you to switch her MRI of the abdomen to a CT due to 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 Daughter#[phone] Please advise, Thank you documented in this encounter Plan of Treatment Upcoming Encounters Date Type Department Care Team ([facility] st Contact Info) Description 01/31/2025 3:00 PM EDT Office Visit [facility] [address] [place] [phone] Cole Schwartz MD [address] [phone] documented as of this encounter Visit Diagnoses Not on filedocumented in this encounter Care Teams Coining Press Operator Relationship Specialty Start Date End Date Audrey Posey MD [address] [place] [address] PCP - General Internal Medicine 12/15/23 documented as of this encounter
--- OUTSIDE RECORDS SUMMARY | 2025-01-17 14:54 | XMS_ITS | Encounter Summary ---
Author Organization [facility] Address [address] [place] [address] Care Team Providers Care Office 365 Consultant Name Role Phone Audrey Posey MD Primary Care Prov ider Reason for Visit * Reason Onset Date Comments Faxed Order [id number] 01/14/2025 Encounter Details Date Type Department Care Team ([facility] st Contact Info) Description 01/14/2025 Telephone Adult Medicine - [place] [address] [place] [phone] Audrey Posey MD [address] [place] [address] Faxed Order [id number] Social History Tobacco Use Types Packs/Day Years [...] as of this encounter Progress Notes * Felecia Hernandes MA - 01/15/2025 1:41 PM EDT Signed faxed and filed. * Antonina Gastelum - 01/14/2025 8:40 AM EDT PLEASE CLOSE MESSAGE WHEN ORDER HAS BEEN FAXED Faxed order [id number] received from [facility], requesting signature from provider. Please sign and fax back to [phone]. Order in orange folder documented in this encounter Plan of Treatment Upcoming Encounters Date Type Department Care Team (Late st Contact Info) Description 01/22/2025 8:00 AM EDT Appointment [facility] Interventional Radiology [address] [place] [address] 01/23/2025 2:00 PM EDT Office Visit [facility] Hematology Oncology [address] [place] [address] Cahris Anderson MD [address] [place] [address] 02/12/2025 1:00 PM EDT Office Visit Urogynecology - [address] [phone] Hailey John MD [address] [place] [address] [address] [place] [address] 02/26/2025 11:00 AM EDT Office Visit Adult Medicine - [place] [address] [place] [address] Audrey Posey MD [address] [place] [address] 05/02/2025 1:50 PM EDT Appointment Radiology Department - [address] [phone] documented as of this encounter Goals Goal Patient Goal Type Associated Problems Recent Progress Patient-Stated? Author Keep patient safe at home Chelsea Evangelista, RN Note: Pace Program referral Educate family as needed Assist family to find additional care resources documented as of this encounter Visit Diagnoses Not on filedocumented in this encounter Care Teams Office 365 Consultant Relationship Specialty Start Date End Date Audrey Posey MD [address] [place] [address] PCP - General Internal Medicine 10/31/15 documented as of this encounter
--- OUTSIDE RECORDS SUMMARY | 2025-01-17 14:54 | XMS_ITS ---
Author Organization [facility] Address [address] [place] [address] Care Team Providers Care Inclusion Special Educator Name Role Phone Audrey Posey MD Primary Care Prov ider Transitional Care Management Status:Ongoing (Active) Start date:01/01/2025 Enrollment date:01/02/2025 Enrollment reason:Identified using hospital discharge data Case Team Name Relationship Phone Chelsea Snell retail chain store area supervisor(Responsible S taff) Continued Care and Services Coordination
--- OUTSIDE RECORDS SUMMARY | 2025-01-17 14:54 | XMS_ITS | Encounter Summary ---
Author Organization [facility] Address [address] [place] [address] Care Team Providers Care Electronic Data Processing Auditor Name Role Phone Audrey Posey MD Primary Care Prov ider Reason for Visit * Reason Onset Date Comments Faxed order [id number] 01/17/2025 Encounter Details Date Type Department Care Team ([facility] st Contact Info) Description 01/17/2025 Telephone Adult Medicine - [place] [address] [place] [phone] Audrey Posey MD [address] [place], [place] [phone] Faxed order [id number] Social History Tobacco Use Types Packs/Day Years [...] Progress Notes * Antonina Gastelum - 01/17/2025 8:20 AM EDT PLEASE CLOSE MESSAGE WHEN ORDER HAS BEEN FAXED Faxed order [id number] received from [facility], requesting signature from provider. Please sign and fax back to [phone]. Order in orange folder documented in this encounter Plan of Treatment Upcoming Encounters Date Type Department Care Team (Late st Contact Info) Description 01/22/2025 8:00 AM EDT Appointment [facility] Interventional Radiology [address] [place] [phone] 01/23/2025 2:00 PM EDT Office Visit [facility] Hematology Oncology [address] [place] [phone] Charis Anderson MD [address] [place] [address] 02/12/2025 1:00 PM EDT Office Visit Urogynecology - [address] [phone] Hailey John MD [address] [place] [address] [address] [place] [address] 02/26/2025 11:00 AM EDT Office Visit Adult Medicine - [place] [address] [place] [address] Audrey Posey MD [address] [place], [place] 05/02/2025 1:50 PM EDT Appointment Radiology Department - [address] [phone] documented as of this encounter Goals Goal Patient Goal Type Associated Problems Recent Progress Patient-Stated? Author Keep patient safe at home Chelsea Evangelista, RN Note: Pace Program referral Educate family as needed Assist family to find additional care resources documented as of this encounter Visit Diagnoses Not on filedocumented in this encounter Care Teams Electronic Data Processing Auditor Relationship Specialty Start Date End Date Audrey Posey MD [address] [place], [place] PCP - General Internal Medicine 10/31/15 documented as of this encounter
== END 2025-01-17 15:02 | disposition home or self-care (01) ==
LOC: HO.HSMS 13:58
PROVIDERS: PCP Internal Medicine; Visit Provider Psychiatry & Neurology Neurology
DX: G30.0 Alzheimer's disease with early onset (principal); F02.C2 Dementia in other diseases classified elsewhere, severe, with psychotic disturbance
CPT/HCPCS: 99214

== ENCOUNTER → 2025-01-17 13:57 | Outpatient (BNVA) | payer MEDICARE, MEDICAID, SELFPAY | PROVIDERS: PCP Internal Medicine; Visit Provider Psychiatry & Neurology Neurology | DX: G30.0 Alzheimer's disease with early onset (principal); F02.C2 Dementia in other diseases classified elsewhere, severe, with psychotic disturbance | CPT/HCPCS: 99212 ==